=== PATIENT | male | born 1995 | race African-American/Black ===

== ENCOUNTER 2016-12-26 21:40 | Emergency (ER) | payer OTHER ==
[~2016-12-26] VITALS: Ht 175.3 cm; Wt 68.0 kg
[~2016-12-26 21:40] MED LIST: BUPR-79 PO; CETI10TA10 PO; IBUP-1451 PO; MGCS/ PO; VENL75CA73 PO
[2016-12-26 21:49] VITALS: TEMP 36.5; Ht 175.3 cm; Wt 68.0 kg
--- NOTE | 2016-12-26 22:04 | EMERGENCY ROOM VISIT NOTE ---
History Report prepared by Kathyiblamin: Sammy Anders Under the Supervision of: Dr. Miguel Willis D.O. First contact with patient: 21:58 Chief Complaint: ALCOHOL OVERDOSE Stated Complaint: ALCOHOL Nursing Triage Summary: intoxication, see triage note History of Present Illness The patient is a 21 year old male who presents to the Emergency Room with complaints of an acute alcohol overdose that occurred just prior to arrival. The patient only states "I want to go home." History is limited secondary to intoxication. Source of History: patient History Limited By: intoxication Onset: BAILIFF Position: other (global) Quality: other (alcohol overdose) Timing: other (acute) Review of Systems ROS is limited secondary to alcohol intoxication. Past Medical & Surgical Medical Problems: (1) Seasonal allergies Surgical Problems: (1) No significant past surgical history Family History Patient reports no known family medical history. Social History Smoking Status: Never Smoker Alcohol Use: none Marital Status: single Occupation Status: [employer] Current/Historical Medications Unable to Obtain Active Prescriptions or Reported Meds Allergies Coded Allergies: No Known Allergies (Unverified , 06/16/14) Physical Exam Vital Signs Date Time Temp Pulse Resp B/P Pulse Ox O2 Delivery O2 Flow Rate FiO2 12/27/16 00:53 82 105/54 Room Air 12/26/16 23:07 97 16 102/69 97 Room Air 12/26/16 22:23 99 Room Air 12/26/16 22:23 99 Room Air 12/26/16 22:09 87 12/26/16 21:49 36.5 74 16 104/68 97 Room Air Physical Exam GENERAL: Alcohol on breath, slurring speech. No signs of trauma. HENT: Normocephalic, atraumatic. Oropharynx unremarkable. EYES: Normal conjunctiva. Sclera non-icteric. NECK: Supple. No nuchal rigidity. FROM. No JVD. RESPIRATORY: Clear to auscultation. CARDIAC: Mildly tachycardic, normal rhythm. Extremities warm and well perfused. Pulses equal. ABDOMEN: Soft, non-distended. No tenderness to palpation. No rebound or guarding. No masses. RECTAL: Deferred. MUSCULOSKELETAL: Chest examination reveals no tenderness. The back is symmetrical on inspection without obvious abnormality. There is no CVA tenderness to palpation. No joint edema. LOWER EXTREMITIES: Calves are equal size bilaterally and non-tender. No edema. No discoloration. NEURO: Normal sensorium. No sensory or motor deficits noted. SKIN: No rash or jaundice noted. Medical Decision & Procedures Laboratory Results 12/26/16 22:16 Test 12/26/16 22:15 12/26/16 22:16 Bedside Glucose 93 mg/dl (70-99) Anion Gap 12.0 mmol/L (3-11) Est Creatinine Clear Calc Drug Dose 118.8 ml/min Estimated GFR () 133.6 Estimated GFR (Non- 115.3 BUN/Creatinine Ratio 15.7 (10-20) Calcium Level 8.9 mg/dl (8.5-10.1) Ethyl Alcohol mg/dL 316.0 mg/dl (0-3) Laboratory results reviewed by me ED Course 2158: The patient was evaluated in room C12A. A complete history and physical exam was performed. 0155: Reassessed the patient. He is completely alert, talking. The patient has a sober friend en route to take him home. Medical Decision Differential diagnosis includes alcohol intoxication, hypoglycemia, dehydration. Resting in no distress on repeat examination at 2:01 AM has a sober friend here he is alert there is no signs of trauma on the patient he has a GCS of 15 and is nonfocal Impression Primary Impression: Alcohol use with intoxication Scribe Attestation The scribe's documentation has been prepared under my direction and personally reviewed by me in its entirety. I confirm that the note above accurately reflects all work, treatment, procedures, and medical decision making performed by me. Departure Information Dispostion Home / Self-Care Prescriptions Unable to Obtain Active Prescriptions or Reported Meds Referrals No Doctor, Assigned (PCP) Patient Instructions Alcohol Intoxication - [facility], My [facility]
[2016-12-26 22:23] VITALS: O2SAT 99
[2016-12-26 22:43] LABS: BUN/CREATININE RATIO 15.7 (10-20); CREATININE 0.93 mg/dl (0.60-1.40); POTASSIUM 3.5 mmol/L (3.5-5.1)
[2016-12-26 22:54] LABS: CALCIUM 8.9 mg/dl (8.5-10.1)
[2016-12-27 02:13] VITALS: BP 121/69; PULSE 98; O2SAT 98
== END 2016-12-27 02:14 | disposition home or self-care (01) ==
LOC: EDBD 21:40 → C.EDC 21:41 → C.EDB 12-27 02:14
DX: F10.120 Alcohol abuse with intoxication, uncomplicated (principal); Y90.8 Blood alcohol level of 240 mg/100 ml or more